=== PATIENT | female | born 1965 | race Caucasian/White ===

== ENCOUNTER → 2017-01-01 | Outpatient (CLI) | payer BC ==
[2017-01-01 08:50] LABS: HEMOGLOBIN 13.5 gm/dl (12.3-15.3); RED BLOOD COUNT 4.56 M/UL (4.00-5.10); WHITE BLOOD COUNT 6.5 K/UL (4.5-11.0)
[2017-01-01 09:06] LABS: BUN/CREATININE RATIO 13 (0-10)
== END ==
LOC: LAB 07:27
PROVIDERS: Internal Medicine
DX: E03.9 Hypothyroidism, unspecified (principal); R53.83 Other fatigue; E53.8 Deficiency of other specified B group vitamins; M89.9 Disorder of bone, unspecified; M94.9 Disorder of cartilage, unspecified
CPT/HCPCS: 36415; 80053; 80061; 82607; 84443; 85027

== ENCOUNTER → 2017-02-19 | Outpatient (CLI) | payer BC | LOC: LAB 14:33 | DX: N28.9 Disorder of kidney and ureter, unspecified (principal) | CPT/HCPCS: 36415; 82565; 84520 ==

== ENCOUNTER → 2017-02-26 | Outpatient (CLI) | payer BC | LOC: CT 07:35 | DX: N28.9 Disorder of kidney and ureter, unspecified (principal); Z98.890 Other specified postprocedural states | CPT/HCPCS: J7050; Q9962 ==

== ENCOUNTER → 2017-06-25 | Outpatient (CLI) | payer BC | LOC: LAB 07:07 | DX: Z00.00 Encounter for general adult medical examination without abnormal findings (principal) | CPT/HCPCS: 36415; 82565 ==

== ENCOUNTER → 2020-12-13 | Outpatient (CLI) | payer BC, OTHER ==
[2020-12-13 08:40] LABS: HEMOGLOBIN 13.6 gm/dl (12.3-15.3); RED BLOOD COUNT 4.61 M/UL (4.00-5.10); WHITE BLOOD COUNT 7.2 K/UL (4.5-11.0)
[2020-12-13 08:59] LABS: BUN/CREATININE RATIO 16 (0-10)
== END ==
LOC: LAB 07:24
PROVIDERS: Internal Medicine
DX: E03.9 Hypothyroidism, unspecified (principal); G43.909 Migraine, unspecified, not intractable, without status migrainosus; M17.11 Unilateral primary osteoarthritis, right knee; M54.6 Pain in thoracic spine
CPT/HCPCS: 36415; 80053; 80061; 82607; 83735; 84439; 84443; 85025

== ENCOUNTER → 2020-12-19 | Outpatient (CLI) | payer BC, OTHER | LOC: KOH-I 12-16 10:00 | DX: M54.6 Pain in thoracic spine (principal); N99.89 Other postprocedural complications and disorders of genitourinary system | CPT/HCPCS: 74150 ==